=== PATIENT | female | born 1990 | race Caucasian/White ===

== ENCOUNTER 2018-11-17 16:07 | Emergency (ER) | payer MEDICAID, OTHER ==
[~2018-11-17] VITALS: Ht 160 cm; Wt 90.7 kg
[2018-11-17 16:07] VITALS: BP 129/89
--- NOTE | 2018-11-17 17:20 | NUR ---
for discharge After care instructions given. Pre fabricated Wrist splint applied to both wrist. Home ambulatory in stable condition
== END 2018-11-17 17:23 | disposition home or self-care (01) ==
LOC: ER 16:10
DX: G56.03 Carpal tunnel syndrome, bilateral upper limbs (principal)
CPT/HCPCS: 29125; 99283; A4606; Z7610

== ENCOUNTER 2025-03-16 18:26 | Emergency (ER) | payer MEDICAID, OTHER ==
[~2025-03-16] VITALS: Ht 160 cm; Wt 108.9 kg
[2025-03-16] MEDS ORDERED: LIDOCAINE 5% (PATCH) 1 EA PATCH TP ONE (19:17)
[2025-03-16] MEDS ORDERED: KETOROLAC TROMETHAMINE 15 MG/ML VIAL ONE (19:17)
[2025-03-16] MEDS ORDERED: ACETAMINOPHEN ES 500 MG TABLET ONE (19:18)
[2025-03-16] MEDS ORDERED: CYCLOBENZAPRINE 10 MG TABLET ONE (19:18)
[2025-03-16] MEDS: ACETAMINOPHEN ES 500 MG TABLET PO ONE (19:23)
[2025-03-16] MEDS: CYCLOBENZAPRINE 10 MG TABLET PO ONE (19:23)
[2025-03-16 19:24] LABS: APPEARANCE,URINE CLEAR (CLEAR); BILIRUBIN,URINE Negative (NEGATIVE); BLOOD, URINE Trace-intact Ery/uL (NEGATIVE); COLOR,URINE YELLOW (YELLOW); KETONES,URINE Negative (NEGATIVE); LEUKOCYTE ESTERASE ,URINE Small (NEGATIVE); PROTEIN,URINE Negative (NEGATIVE); UGLUCOSE Negative (NEGATIVE); UROBILINOGEN,URINE 0.2 EU/dL (0.2)
[2025-03-16] MEDS: LIDOCAINE 5% (PATCH) 1 EA PATCH TP SCH (19:25)
[2025-03-16 19:27] LABS: NITRITE, URINE NEGATIVE (NEGATIVE)
[2025-03-16 19:28] LABS: ADD URINE CULTURE YES; BACTERIA,URINE Few /HPF (None Seen); PREGNANCY TEST URINE QUAL NEGATIVE (NEGATIVE); SQUAMOUS EPITHELIAL CELL,UR Few /HPF (None Seen)
[2025-03-16] MEDS: KETOROLAC TROMETHAMINE 15 MG/ML VIAL IM ONE (19:32)
[2025-03-16] MEDS ORDERED: LIDO30AD10 TP (20:01)
[2025-03-16] MEDS ORDERED: ACET-2030 PO (20:01)
[2025-03-16] MEDS ORDERED: CYCL10TA9 PO (20:01)
[2025-03-16] MEDS ORDERED: KETO10TA2 PO (20:01)
[2025-03-16] MEDS ORDERED: NITR100C6 PO (20:02)
[2025-03-16 20:40] VITALS: BP 135/75; TEMP 98; O2SAT 100
== END 2025-03-16 20:41 | disposition home or self-care (01) ==
LOC: ER 18:31
DX: S39.012A Strain of muscle, fascia and tendon of lower back, initial encounter (principal); N39.0 Urinary tract infection, site not specified; X50.1XXA Overexertion from prolonged static or awkward postures, initial encounter; Y93.89 Activity, other specified; Y92.89 Other specified places as the place of occurrence of the external cause; Y99.8 Other external cause status
CPT/HCPCS: 99284; 96372; 84703; 81001; J1885; 87086-TC